=== PATIENT | male | born 1975 | race Caucasian/White ===

== ENCOUNTER 2016-08-18 07:20 | Emergency (ER) | payer BC, OTHER ==
--- NOTE | 2016-08-18 07:28 | PDOC ---
History of Present Illness - General Chief Complaint: Injury Stated Complaint: DROPPED BENCH ON LEFT GREAT TOE Time Seen by Provider: 08/18/16 07:23 History Source: Patient, Old Records Exam Limitations: No Limitations - History of Present Illness Initial Comments: 08/18/16 07:31 40 y/o male with no significant PMHx presents to the ED with c/o pain to the left great toe after dropping a heavy bench on his foot 3 days ago. The patient is able to bear weight with pain. He says that his toenail has gotten progressively larger over the past 3 days. He has not sought medical attention before today. Past History - Past Medical History Allergies/Adverse Reactions: Allergies Allergy/AdvReac Type Severity Reaction Status Date / Time No Known Allergies Allergy Verified 08/18/16 07:22 Home Medications: Ambulatory Orders NK [No Known Home Medication] 09/12/13 Thyroid Disease: No - Surgical History Appendectomy: Yes - Psycho/Social/Smoking Cessation Hx Anxiety: No Suicidal Ideation: No Smoking History: Never smoked Hx Alcohol Use: No Substance Use Type: None *Physical Exam - Physical Exam Comments: 08/18/16 07:58 GENERAL: Well developed, well nourished. Awake and alert. No acute distress. EXTREMITIES: Left foot: There is a subungual hematoma of the left great toe. There is no bony tenderness. Sensory and motor exams are intact. Pulses are palpable and are +2. SKIN: Warm and dry. Normal capillary refill. No rashes. No jaundice. NEUROLOGICAL: Alert, awake, appropriate. Cranial nerves 2-12 intact. Grossly non-focal exam. PSYCHIATRIC: Cooperative. Good eye contact. Appropriate mood and affect. Medical Decision Making - Medical Decision Making 08/18/16 08:01 40 y/o male with left great toe pain s/p crush injury 3 days ago. DDx includes but is not limited to: nailbed injury, fx, contusion, subungual hematoma. Plan: 1. Plain films of left foot to r/o fx 2. Trephonate nail 3. Pain management 4. Discharge home; follow-up with podiatry. Return to the ED if Sx persist, worsen or new Sx arise. *DC/Admit/Observation/Transfer Diagnosis at time of Disposition: Subungual hematoma of great toe of left foot - Discharge Dispostion Disposition: HOME Condition at time of disposition: Stable Admit: No - Patient Instructions Printed Discharge Instructions: DI for Subungual Hematoma Additional Instructions: Keep the wound clean and dry. Apply bactiracin to the area twice daily. Return to the ED if the wound appears, red, swollen, purulent drainage or any other symptoms. You may take ibuprofen 800mg every 6-8 hours as needed for the pain.
[2016-08-18 07:29] VITALS: BP 135/83; PULSE 79; TEMP 98.9; BMI 28.2
[2016-08-18] MEDS ORDERED: IBUPROFEN 400 MG TABLET (FP) PO ONE ×2 (08:03→08:05)
[2016-08-18] MEDS ORDERED: LIDOCAINE HCL 2% (20ML MULTI-DOSE VIAL) NR ONE (08:28)
== END 2016-08-18 08:44 | disposition home or self-care (01) ==
LOC: FER 07:20
DX: S90.212A Contusion of left great toe with damage to nail, initial encounter (principal); W20.8XXA Other cause of strike by thrown, projected or falling object, initial encounter; Y93.9 Activity, unspecified; Y92.9 Unspecified place or not applicable
CPT/HCPCS: 73630-TC-LT; 99281-25

== ENCOUNTER 2018-12-16 11:46 | Emergency (ER) | payer BC ==
[2018-12-16 11:49] VITALS: BP 118/82; PULSE 85; TEMP 98; BMI 28.2
[2018-12-16] MEDS ORDERED: BACITRACIN 15 GM TUBE TOPICAL OINTMENT ONE (12:14)
[2018-12-16] MEDS ORDERED: DIPHTH,PERTUSS(ACELL),TET 0.5 ML DISP.SYRIN IM ONE ×3 (12:17→12:22)
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
== END 2018-12-16 12:34 | disposition home or self-care (01) ==
LOC: JERFT 11:46
PROC: 3E0234Z Introduction of Serum, Toxoid and Vaccine into Muscle, Percutaneous Approach (ICD-10-PCS; principal; 2018-12-16)
DX: S60.311A Abrasion of right thumb, initial encounter (principal); X58.XXXA Exposure to other specified factors, initial encounter; Y93.89 Activity, other specified; Y92.89 Other specified places as the place of occurrence of the external cause; Y99.0 Civilian activity done for income or pay; Y35.891A Legal intervention involving other specified means, law enforcement official injured, initial encounter
CPT/HCPCS: 90715; 99281-25